=== PATIENT | female | born 1975 ===

== ENCOUNTER 2018-05-20 12:45 | Emergency (ER) | payer MEDICAID, OTHER ==
[2018-05-20 12:46] VITALS: BMI 16.9
[2018-05-20 12:52] VITALS: BP 112/83; RESP 18; TEMP 99.2; O2SAT 98
--- NOTE | 2018-05-20 13:25 | ED PDOC ---
HPI: General Adult Time Seen by Provider: 05/20/18 12:50 Chief Complaint (Nursing): Med Refill Chief Complaint (Provider): Med Refill, Anxiety History Per: Patient History/Exam Limitations: no limitations Current Symptoms Are (Timing): Still Present Additional Complaint(s): 42-year-old female, with a PMHx of Anxiety, presents to ED for Ativan refill. Patient reports she has a history of anxiety and that she ran out of the medication last night. Patient states she was in the area and decided to get the refill here. (-) HI, (-) SI, (-) auditory or visual hallucinations. Patient reports anxiety is mild right now. Patient has no physical complaints at this time. LMP: April 14 Psych: Kathe Sam PMD: No Provider Past Medical History Reviewed: Historical Data, Nursing Documentation, Vital Signs Vital Signs: Last Vital Signs Temp 99.2 F 05/20/18 12:49 Pulse 90 05/20/18 14:23 Resp 18 05/20/18 12:49 BP 112/83 05/20/18 12:49 Pulse Ox 98 05/20/18 20:19 - Medical History PMH: Anxiety, Asthma, Bipolar Disorder, Depression, Migraine, Post Traumatic Stress Disorder, Schizophrenia - Surgical History Surgical History: No Surg Hx - Family History Family History: States: Unknown Family Hx - Social History Current smoker - smoking cessation education provided: No Alcohol: None Drugs: Denies - Immunization History Hx Tetanus Toxoid Vaccination: Yes - Home Medications Home Medications: Ambulatory Orders Medication Instructions Recorded Benztropine [Benztropine Mesylate] 1 mg PO BID 10/11/17 Buspar 10/11/17 Divalproex Sodium [Divalproex 500 mg PO DAILY 10/11/17 Sodium ER] Benztropine [Cogentin] 1 mg PO HS #30 tab 10/19/17 Divalproex [Depakote ER] 500 mg PO HS #30 ter 10/19/17 busPIRone [Buspar] 10 mg PO BID #60 tab 10/19/17 fluPHENAZine [Prolixin] 10 mg PO HS #30 tab 10/19/17 traZODone [Desyrel] 50 mg PO HS PRN #30 tab 10/19/17 Benztropine [Cogentin] 1 mg PO BID #60 tab 12/09/17 Ciprofloxacin [Cipro] 500 mg PO BID #10 tab 12/09/17 Divalproex [Depakote ER] 250 mg PO BID #60 ter 12/09/17 busPIRone [Buspar] 10 mg PO BID #60 tab 12/09/17 fluPHENAZine [Prolixin] 10 mg PO BID #60 tab 12/09/17 - Allergies Allergies/Adverse Reactions: Allergies Allergy/AdvReac Type Severity Reaction Status Date / Time almond Allergy RASH Verified 05/20/18 12:48 nut - unspecified [nut] Allergy SWELLING Verified 05/20/18 12:48 peanut Allergy RASH Verified 05/20/18 12:48 Penicillins Allergy SWELLING Verified 05/20/18 12:48 shellfish derived Allergy RASH Verified 05/20/18 12:48 Review of Systems ROS Statement: Except As Marked, All Systems Reviewed And Found Negative Psych: Positive for: Anxiety (anxiety is currently mild as per pt). Negative for: Suicidal ideation (HI), Other (auditory or visual hallucinations) Physical Exam - Reviewed Nursing Documentation Reviewed: Yes Vital Signs Reviewed: Yes - Physical Exam Appears: Positive for: Well, Non-toxic, No Acute Distress (Resting comfortably) Head Exam: Positive for: ATRAUMATIC, NORMOCEPHALIC Skin: Positive for: Normal Color, Warm, Dry Eye Exam: Positive for: EOMI, PERRL ENT: Positive for: Pharynx Is (clear, uvula midline), Other (Mucus membranes moist. Airway patent, (-) stridor.) Neck: Positive for: Painless ROM, Supple Cardiovascular/Chest: Positive for: Regular Rate, Rhythm Respiratory: Positive for: Normal Breath Sounds. Negative for: Respiratory Distress Gastrointestinal/Abdominal: Positive for: Soft. Negative for: Tenderness, Distended, Guarding Extremity: Positive for: Normal ROM. Negative for: Deformity Neurologic/Psych: Positive for: Alert, Oriented (x 3), Mood/Affect (flat), Gait (steady in ED), Other (Patient is talking to herself in exam room.) - Laboratory Results Urine POC: Negative - ECG O2 Sat by Pulse Oximetry: 98 (RA) Pulse Ox Interpretation: Normal Medical Decision Making Medical Decision Makin-year-old female presents to ED for med refill, anxiety Plan: - Crisis evaluation - ED Test - Psych eval Urine Preg Test: negative 1415 Repeat HR: 90 Per crisis evaluation, patient to be discharged with the diagnosis of anxiety per Dr Luna. No refill for Ativan at this time. Patient has an appt with her psychiatrist, Dr Sam, tomorrow. On re-evaluation, patient reports no additional symptoms. On exam, patient remains AAOx3, in no acute distress. Neck is supple, lungs CTA, cardiac RRR, abdomen is soft and non-tender, neuro exam shows no focal findings. VSS, stable for discharge. Diagnostic results d/w the patient in great detail. Dx of anxiety d/w the patient. Based on history, exam and diagnostic results plan will be for outpatient follow up tomorrow as planned. Return to the emergency room at any time for any new or worsening symptoms. Patient states she fully agrees with and understands discharge instructions. States that she agrees with the plan and disposition. Verbalized and repeated discharge instructions and plan. I have given the patient opportunity to ask any additional questions. Scribe Attestation: Documented by Ahmet Oconnor, acting as a scribe for Teresita Nolan PA-C. Provider Scribe Attestation: All medical record entries made by the Scribe were at my direction and personally dictated by me. I have reviewed the chart and agree that the record accurately reflects my personal performance of the history, physical exam, medical decision making, and the department course for this patient. I have also personally directed, reviewed, and agree with the discharge instructions and disposition. Disposition - Clinical Impression Clinical Impression: Anxiety - Patient ED Disposition Is Patient to be Admitted: No Counseled Patient/Family Regarding: Diagnosis, Need For Followup - Disposition Referrals: [facility] [Outside] Disposition: Routine/Home Disposition Time: 14:16 Condition: STABLE Additional Instructions: FOLLOW UP WITH DR SAM TOMORROW SCHEDULED. RETURN TO ED WITH ANY NEW OR WORSENING SYMPTOMS. Instructions: Anxiety, Adult (DC) Forms: [facility] (Z[place]an) Print Language: SOUTH AFRICAN - POA Present On Arrival: None
[2018-05-20 14:24] VITALS: PULSE 90
== END 2018-05-20 14:44 | disposition home or self-care (01) ==
LOC: H.ER 12:45
DX: Z76.0 Encounter for issue of repeat prescription (principal); F41.9 Anxiety disorder, unspecified; F20.9 Schizophrenia, unspecified; F31.9 Bipolar disorder, unspecified; F43.10 Post-traumatic stress disorder, unspecified; J45.909 Unspecified asthma, uncomplicated; Z88.0 Allergy status to penicillin

== ENCOUNTER 2018-05-27 10:31 | Emergency (ER) | payer OTHER ==
[2018-05-27 10:47] VITALS: TEMP 98; O2SAT 99; BMI 17.2
--- NOTE | 2018-05-27 11:26 | ED PDOC ---
HPI: SOB/CHF/COPD Chief Complaint (Provider): breathing problems because i am anxious History Per: Patient Onset/Duration Of Symptoms: Intermittent Episodes Current Symptoms Are (Timing): Better Initiating Event: Other (anxiety) Associated Symptoms: Anxiety. denies: Fever, Chills, Chest Pain, Productive Cough, Leg/Calf Pain, Ankle/Leg Swelling, Light-headedness Similar Symptoms Previously: yes <Beth Sullivan - Last Filed: 05/27/18 17:03> <Dawson Burger - Last Filed: 05/31/18 15:02> Time Seen by Provider: 05/27/18 10:43 Chief Complaint (Nursing): Anxiety Additional Complaint(s): 42 yo F, with PMH depression and anxiety, presented to ED due to "breathing problems because of anxiety." Pt is not able to state what triggers her anxiety , and is unable to further describe her symptoms on her own, but when prompted admits to feeling like she breathes too slow rather than too fast. Denies cough, shortness of breath on exertion, chest pain, dysuria, n/v/d/c, abdominal pain, leg/calf pain, does not offer any additional complaints. Currently denies any suicidal or homicidal ideation. Does not have regular PMD. PMH: anxiety, depression Meds: klonopin 0.25 mg, takes daily Surg: none Social: lives with mother in [place]. some days smoker x 2 yrs, social etoh (quantifies as 1 glass wine every few weeks), denies any drug use Fam hx: mother has htn; siblings have anxiety Allergiies: almont, peanut, penicillin (Beth Sullivan) Past Medical History Reviewed: Nursing Documentation, Vital Signs - Medical History PMH: Anxiety, Asthma, Bipolar Disorder, Depression, Migraine, Post Traumatic Stress Disorder, Schizophrenia Denies: Diabetes, Hepatitis, HIV, HTN, Chronic Kidney Disease, Seizures, Sexually Transmitted Disease - Surgical History Surgical History: No Surg Hx - Family History Family History: States: Hypertension Other Family History: anxiety - Living Arrangements Living Arrangements: With Family - Social History Alcohol: Social Drugs: Denies - Immunization History Hx Tetanus Toxoid Vaccination: Yes Hx Influenza Vaccination: No Hx Pneumococcal Vaccination: No <Beth Sullivan - Last Filed: 05/27/18 17:03> <Dawson Burger - Last Filed: 05/31/18 15:02> Vital Signs: Last Vital Signs Temp 98 F 05/27/18 10:46 Pulse 82 05/27/18 16:10 Resp 16 05/27/18 16:10 BP 124/64 05/27/18 16:10 Pulse Ox 99 05/27/18 17:03 - Home Medications Home Medications: Ambulatory Orders Medication Instructions Recorded clonazePAM [clonAZEPAM] 0.25 mg PO DAILY PRN 05/28/18 - Allergies Allergies/Adverse Reactions: Allergies Allergy/AdvReac Type Severity Reaction Status Date / Time almond Allergy RASH Verified 05/20/18 12:48 nut - unspecified [nut] Allergy SWELLING Verified 05/20/18 12:48 peanut Allergy RASH Verified 05/20/18 12:48 Penicillins Allergy SWELLING Verified 05/27/18 10:51 shellfish derived Allergy RASH Verified 05/20/18 12:48 Curb-65 Severity Score - CURB-65 Severity Score Confusion: No Respiratory Rate greater than/equal to 30: No Systolic BP <90 or Diastolic BP less than/equal 60mmHg: No Age >64: No Curb-65 Score: 0 Percentage 30-day mortality: 0.6% <Beth Sullivan - Last Filed: 05/27/18 17:03> Wells Criteria for PE - Wells Criteria for Pulmonary Embolism Clinical Signs and Symptoms of DVT: No P.E is #1 Diagnosis, or Equally Likely: No Heart Rate >100: No Immobilization at least 3 days;Surgery previous 4 weeks: No Previous, objectively diagnosed PE or DVT: No Hemoptysis: No Malignancy w/treatment within 6 months, or palliative: No Total Score: 0 <Beth Sullivan - Last Filed: 05/27/18 17:03> Review of Systems ROS Statement: Except As Marked, All Systems Reviewed And Found Negative ( positive as per HPI) Constitutional: Negative for: Fever, Sweats, Weakness Eyes: Negative for: Vision Change Cardiovascular: Negative for: Chest Pain Respiratory: Positive for: Other (breathing slow, "breathing problems"). Negative for: Cough, Hemoptysis, SOB with Exertion Gastrointestinal: Negative for: Nausea, Vomiting, Abdominal Pain, Diarrhea, Hematemesis Genitourinary Female: Negative for: Dysuria Psych: Positive for: Anxiety, Depression. Negative for: Suicidal ideation <Beth Sullivan Last Filed: 05/27/18 17:03> Physical Exam - Reviewed Nursing Documentation Reviewed: Yes Vital Signs Reviewed: Yes - Physical Exam Appears: Positive for: Non-toxic (somewhat nervous) Head Exam: Positive for: ATRAUMATIC Skin: Positive for: Normal Color, Warm, Dry Eye Exam: Positive for: Normal appearance, EOMI, PERRL ENT: Positive for: Normal ENT Inspection, Pharynx Is (clear). Negative for: Pharyngeal Erythema, Tonsillar Exudate Neck: Positive for: Normal, Painless ROM, Supple, Trachea Midline Cardiovascular/Chest: Positive for: Regular Rate, Rhythm, Chest Non Tender. Negative for: Edema Respiratory: Positive for: Normal Breath Sounds. Negative for: Decreased Breath Sounds, Accessory Muscle Use, Crackles, Rales, Stridor, Wheezing, Respiratory Distress Gastrointestinal/Abdominal: Positive for: Bowel Sounds, Soft. Negative for: Tenderness Extremity: Positive for: Capillary Refill (less than 2 sec). Negative for: Tenderness, Pedal Edema, Deformity Neurologic/Psych: Positive for: Alert, Oriented <Beth Sullivan - Last Filed: 05/27/18 17:03> - Laboratory Results Result Diagrams: 05/27/18 11:47 05/27/18 11:47 - ECG O2 Sat by Pulse Oximetry: 99 <Beth Sullivan - Last Filed: 05/27/18 17:03> - Laboratory Results Result Diagrams: 05/27/18 11:47 05/27/18 11:47 <Dawson Burger - Last Filed: 05/31/18 15:02> Medical Decision Making <Beth Sullivan - Last Filed: 05/27/18 17:03> <Dawson Burger - Last Filed: 05/31/18 15:02> Medical Decision Making: - EKG - BMP - CBC - Acetaminophen level - Alcohol serum level - Salicylate serum level - Urine drug screen - Pending Crisis eval 1700 Pt left before being seen by machine shop worker; was noted to not be in room or found in ED at 1657. Last seen AAO x3, stable, denied suicidal/homicidal ideation or intent to hurt self and/or others. (Beth Sullivan) Time: 1300 -- Care of patient supervised by policy writer sales. Time: 1436 -- 42 y/o female with an extensive psychiatric history presents to the ED complaining of difficulty breathing. On re-evaluation, patient states she feels slightly better and is cleared for psychiatric evaluation. On exam, lungs are clear to auscultation. Patient is currently pending crisis evaluation. however left before was evaluated. pt had been stable and denied SI or HI. _ Scribe Attestation: Documented by Atiya Kathleen acting as a scribe for Dr. Dawson Burger MD. Provider Scribe Attestation: All medical record entries made by the Scribe were at my direction and personally dictated by me. I have reviewed the chart and agree that the record accurately reflects my personal performance of the history, physical exam, medical decision making, and the department course for this patient. I have also personally directed, reviewed, and agree with the discharge instructions and disposition. (Dawson Burger) Disposition - Disposition Disposition Time: 17:03 <Beth Sullivan - Last Filed: 05/27/18 17:03> - Patient ED Disposition Is Patient to be Admitted: No - Disposition Disposition: Left W/O Treatment <Dawson Burger - Last Filed: 05/31/18 15:02> - Clinical Impression Clinical Impression: Anxiety disorder - Disposition Condition: STABLE Forms: [facility] ([place] Islander)
[2018-05-27 11:49] LABS: SQUAMOUS EPITHIAL 8 /hpf (0-5); URINE BACTERIA MANY (<OCC); URINE BILIRUBIN NEGATIVE (NEGATIVE); URINE BLOOD NEGATIVE (NEGATIVE); URINE CLARITY CLOUDY (Clear); URINE COLOR YELLOW (YELLOW); URINE GLUCOSE (UA) NEG (Normal); URINE LEUKOCYTE ESTERASE TRACE Leu/uL (Negative); URINE PROTEIN 30 mg/dL (NEGATIVE)
[2018-05-27 12:19] LABS: BASO % 0.3 % (0.0-2.0); EOS % 0.6 % (0.0-4.0); HEMOGLOBIN 14.3 g/dL (12.0-16.0); LYMPH # 1.5 K/uL (1.0-4.3); LYMPH % 20.1 % (20.0-40.0); MEAN CELL VOLUME 94.7 fl (81.0-99.0); MEAN CORPUSCULAR HEMOGLOBIN 32.3 pg (27.0-31.0); MEAN CORPUSCULAR HGB CONC 34.1 g/dL (33.0-37.0); MEAN PLATELET VOLUME 9.7 fl (7.2-11.7); MONO # 0.7 K/uL (0.0-0.8); MONO % 9.3 % (0.0-10.0); NEUT # 5.2 K/uL (1.8-7.0); NEUT % 69.7 % (50.0-75.0); RBC 4.41 Mil/uL (3.80-5.20); RED CELL DISTRIBUTION WIDTH 12.5 % (11.5-14.5); WHITE BLOOD COUNT 7.5 K/uL (4.8-10.8)
[2018-05-27 12:47] LABS: BARBITURATES, UR NEGATIVE (NEGATIVE); BENZODIAZEPINES, UR NEGATIVE (NEGATIVE); OPIATES, UR NEGATIVE (NEGATIVE); PHENCYCLIDINE, UR NEGATIVE (NEGATIVE)
[2018-05-27 12:50] LABS: ACETAMINOPHEN < 10.0 ug/ml (10.0-30.0); BLOOD UREA NITROGEN 9 mg/dl (7-17); CALCIUM 9.6 mg/dL (8.4-10.2); GFR AFRICAN-AMERICAN > 60; GFR NON-AFRICAN AMERICAN > 60; SALICYLATE < 1.0 mg/dL 1
--- NOTE | 2018-05-27 15:01 | CARD ---
APPROVED REPORT Date of service: 05/27/2018 EKG Measurement Heart [id number] <Conclusion> Sinus rhythm with short ME T wave abnormality, consider anterior ischemia Abnormal ECG
[2018-05-27 17:06] VITALS: BP 124/64; PULSE 82; RESP 16
== END 2018-05-27 17:46 | disposition left against medical advice (07) ==
LOC: H.ER 10:31
DX: F41.9 Anxiety disorder, unspecified (principal); F20.9 Schizophrenia, unspecified; F31.9 Bipolar disorder, unspecified; F43.10 Post-traumatic stress disorder, unspecified; J44.9 Chronic obstructive pulmonary disease, unspecified; Z88.0 Allergy status to penicillin

== ENCOUNTER 2018-06-25 10:30 | Emergency (ER) | payer MEDICAID, OTHER ==
[2018-06-25 10:30] VITALS: BMI 17.2
[2018-06-25 10:41] VITALS: RESP 18
--- NOTE | 2018-06-25 10:58 | ED PDOC ---
HPI: Psych/Substance Abuse Time Seen by Provider: 06/25/18 10:50 Chief Complaint (Provider): anxiety, SI History Per: Patient History/Exam Limitations: no limitations Onset/Duration Of Symptoms: Hrs (today) Associated Symptoms: Anxiety, Suicidal Thoughts, Suicidal Plan Additional Complaint(s): Solange Reyna is a 42 year old female, with a past medical history of psychoaffective disorder, who presents to the emergency department complaining of anxiety as well as suicidal ideation. Patient reports plan is to take bottle of Tylenol. She denies any homicidal ideation or other medical complaints. PMD: None provided. Past Medical History Reviewed: Historical Data, Nursing Documentation, Vital Signs Vital Signs: Last Vital Signs Temp 98.1 F 06/25/18 10:40 Pulse 82 06/25/18 10:40 Resp 18 06/25/18 10:40 BP 115/81 06/25/18 10:40 Pulse Ox 97 06/25/18 10:40 - Medical History PMH: Anxiety, Asthma, Bipolar Disorder, Depression, Migraine, Post Traumatic Stress Disorder, Schizophrenia Denies: Diabetes, Hepatitis, HIV, HTN, Chronic Kidney Disease, Seizures, Sexually Transmitted Disease - Surgical History Surgical History: No Surg Hx - Family History Family History: States: Unknown Family Hx, Hypertension - Immunization History Hx Tetanus Toxoid Vaccination: Yes Hx Influenza Vaccination: No Hx Pneumococcal Vaccination: No - Home Medications Home Medications: Ambulatory Orders Medication Instructions Recorded clonazePAM [clonAZEPAM] 0.25 mg PO DAILY PRN 05/28/18 Benztropine [Cogentin] 1 mg PO BID #60 tab 06/07/18 Haloperidol [Haldol] 5 mg PO BID #60 tab 06/07/18 QUEtiapine [SEROquel] 100 mg PO HS #30 tab 06/07/18 - Allergies Allergies/Adverse Reactions: Allergies Allergy/AdvReac Type Severity Reaction Status Date / Time almond Allergy RASH Verified 05/20/18 12:48 nut - unspecified [nut] Allergy SWELLING Verified 05/20/18 12:48 peanut Allergy RASH Verified 05/20/18 12:48 Penicillins Allergy SWELLING Verified 05/27/18 10:51 shellfish derived Allergy RASH Verified 05/20/18 12:48 Review of Systems ROS Statement: Except As Marked, All Systems Reviewed And Found Negative Psych: Positive for: Anxiety, Suicidal ideation (with plan) Physical Exam - Reviewed Nursing Documentation Reviewed: Yes Vital Signs Reviewed: Yes - Physical Exam Appears: Positive for: No Acute Distress Head Exam: Positive for: ATRAUMATIC, NORMAL INSPECTION, NORMOCEPHALIC Skin: Positive for: Normal Color, Warm, Dry Eye Exam: Positive for: Normal appearance, EOMI, PERRL Neck: Positive for: Painless ROM Cardiovascular/Chest: Positive for: Regular Rate, Rhythm. Negative for: Murmur Respiratory: Positive for: Normal Breath Sounds. Negative for: Respiratory Distress Gastrointestinal/Abdominal: Positive for: Normal Exam, Soft. Negative for: Tenderness Extremity: Positive for: Normal ROM (upper and lower extremities). Negative for : Deformity, Swelling Neurologic/Psych: Positive for: Alert, Oriented - ECG O2 Sat by Pulse Oximetry: 97 (RA) Pulse Ox Interpretation: Normal - Progress Re-evaluation Time: 11:54 Condition: Improved (Denies SI at present) Medical Decision Making Medical Decision Making: Time: 10:50 Initial Plan: --Alcohol serum --CMP --Drug screen, urine --Urine dipstick --Urine --CBC w/ differential --1:1 Observation --Reevaluation ----- Scribe Attestation: Documented by Edwardo Pop, acting as a scribe for Jero Jakcson MD. Provider Scribe Attestation: All medical record entries made by the Scribe were at my direction and personally dictated by me. I have reviewed the chart and agree that the record accurately reflects my personal performance of the history, physical exam, medical decision making, and the department course for this patient. I have also personally directed, reviewed, and agree with the discharge instructions and disposition. Disposition - Clinical Impression Clinical Impression: Anxiety disorder - Patient ED Disposition Is Patient to be Admitted: No Counseled Patient/Family Regarding: Diagnosis, Need For Followup - Disposition Referrals: [facility] [Outside] Disposition: Routine/Home Disposition Time: 11:55 Condition: FAIR Instructions: Anxiety, Adult (DC)
[2018-06-25 12:04] LABS: BASO % 0.4 % (0.0-2.0); EOS # 0.1 K/uL (0.0-0.7); EOS % 1.3 % (0.0-4.0); HEMOGLOBIN 11.8 g/dL (12.0-16.0); LYMPH # 1.1 K/uL (1.0-4.3); LYMPH % 14.7 % (20.0-40.0); MEAN CELL VOLUME 96.5 fl (81.0-99.0); MEAN CORPUSCULAR HEMOGLOBIN 32.5 pg (27.0-31.0); MEAN CORPUSCULAR HGB CONC 33.7 g/dL (33.0-37.0); MEAN PLATELET VOLUME 9.1 fl (7.2-11.7); MONO # 0.8 K/uL (0.0-0.8); MONO % 10.5 % (0.0-10.0); NEUT # 5.7 K/uL (1.8-7.0); NEUT % 73.1 % (50.0-75.0); RBC 3.62 Mil/uL (3.80-5.20); RED CELL DISTRIBUTION WIDTH 12.9 % (11.5-14.5); WHITE BLOOD COUNT 7.8 K/uL (4.8-10.8)
[2018-06-25 12:06] LABS: BARBITURATES, UR NEGATIVE (NEGATIVE); BENZODIAZEPINES, UR NEGATIVE (NEGATIVE); OPIATES, UR NEGATIVE (NEGATIVE); PHENCYCLIDINE, UR NEGATIVE (NEGATIVE)
[2018-06-25 12:13] LABS: ALB/GLOB RATIO 1.1 (1.0-2.1); ALT/SGPT 37 U/L (9-52); AST/SGOT 31 U/L (14-36); BLOOD UREA NITROGEN 9 mg/dl (7-17); GFR AFRICAN-AMERICAN > 60; GFR NON-AFRICAN AMERICAN > 60
[2018-06-25 12:21] VITALS: BP 130/69; PULSE 96; TEMP 97.9; O2SAT 99
== END 2018-06-25 12:24 | disposition home or self-care (01) ==
LOC: H.ER 10:30
DX: F41.9 Anxiety disorder, unspecified (principal)

== ENCOUNTER 2018-07-24 15:54 | Emergency (ER) | payer MEDICAID, OTHER ==
[2018-07-24 15:55] VITALS: BMI 17.2
[2018-07-24 16:01] VITALS: BP 115/79; PULSE 86; RESP 16; TEMP 98.1; O2SAT 96
--- NOTE | 2018-07-24 16:10 | ED PDOC ---
HPI: Psych/Substance Abuse Time Seen by Provider: 07/24/18 15:58 Chief Complaint (Nursing): Anxiety Chief Complaint (Provider): anxiety History Per: Patient Additional Complaint(s): 42-year-old female with history of anxiety presents with panic attack symptoms. Patient states she was having difficulty breathing earlier but this has subsided. Patient denies any chest pain or SOB upon arrival. She denies suicidal or homicidal ideation and she also denies auditory or visual hallucinations. PMD: none Psychiatrist: Dr. Sam Past Medical History Reviewed: Historical Data, Nursing Documentation, Vital Signs Vital Signs: Last Vital Signs Temp 98.1 F 07/24/18 15:57 Pulse 86 07/24/18 15:57 Resp 16 07/24/18 15:57 BP 115/79 07/24/18 15:57 Pulse Ox 96 07/24/18 15:57 - Medical History PMH: Anxiety, Asthma, Bipolar Disorder, Depression, Migraine, Post Traumatic Stress Disorder, Schizophrenia - Surgical History Surgical History: - Family History Family History: States: Hypertension - Living Arrangements Living Arrangements: Alone - Social History Current smoker - smoking cessation education provided: No Alcohol: None Drugs: Denies - Home Medications Home Medications: Ambulatory Orders Medication Instructions Recorded Olanzapine [Zyprexa] 5 mg PO DAILY 07/23/18 - Allergies Allergies/Adverse Reactions: Allergies Allergy/AdvReac Type Severity Reaction Status Date / Time almond Allergy RASH Verified 07/24/18 15:57 nut - unspecified [nut] Allergy SWELLING Verified 07/24/18 15:57 peanut Allergy RASH Verified 07/24/18 15:57 Penicillins Allergy SWELLING Verified 07/24/18 15:57 shellfish derived Allergy RASH Verified 07/24/18 15:57 Review of Systems ROS Statement: Except As Marked, All Systems Reviewed And Found Negative Cardiovascular: Negative for: Chest Pain Respiratory: Negative for: Cough Gastrointestinal: Negative for: Nausea, Vomiting Psych: Positive for: Anxiety. Negative for: Psychosis (denies auditory or visual hallucinations), Suicidal ideation Physical Exam - Reviewed Nursing Documentation Reviewed: Yes Vital Signs Reviewed: Yes - Physical Exam Appears: Positive for: Well, Non-toxic, No Acute Distress Skin: Positive for: Normal Color. Negative for: Rash Eye Exam: Positive for: Normal appearance Cardiovascular/Chest: Positive for: Regular Rate, Rhythm Respiratory: Positive for: Normal Breath Sounds. Negative for: Wheezing, Respiratory Distress Extremity: Positive for: Normal ROM Neurologic/Psych: Positive for: Alert, Oriented - ECG O2 Sat by Pulse Oximetry: 96 Pulse Ox Interpretation: Normal Medical Decision Making Medical Decision Makin42 y/o with anxiety Plan: PO xanax Crisis consult Patient states she feels better after meds given. As per crisis counselor and psychiatric provider director of instruction, Victorino Ruff NP, patient does not meet criteria for admission and is stable for discharge. Disposition - Clinical Impression Clinical Impression: Anxiety - Patient ED Disposition Is Patient to be Admitted: No Counseled Patient/Family Regarding: Diagnosis, Need For Followup - Disposition Referrals: [facility] [Outside] Disposition: Routine/Home Disposition Time: 17:01 Condition: STABLE Additional Instructions: Follow-up as directed. Instructions: Anxiety, Adult (DC) Forms: [email or web address] (Armenian)
== END 2018-07-24 17:10 | disposition home or self-care (01) ==
LOC: H.ER 15:54
DX: Z88.0 Allergy status to penicillin (principal); J45.909 Unspecified asthma, uncomplicated; Z86.59 Personal history of other mental and behavioral disorders; F41.0 Panic disorder [episodic paroxysmal anxiety]; F43.10 Post-traumatic stress disorder, unspecified

== ENCOUNTER 2018-08-08 15:41 | Emergency (ER) | payer OTHER ==
[2018-08-08 15:42] VITALS: BMI 17.2
[2018-08-08 15:47] VITALS: BP 119/71; PULSE 85; RESP 18; TEMP 98.1; O2SAT 100
--- NOTE | 2018-08-08 16:42 | ED PDOC ---
HPI: Psych/Substance Abuse Time Seen by Provider: 08/08/18 15:53 Chief Complaint (Nursing): Anxiety Chief Complaint (Provider): Anxiety History Per: Patient History/Exam Limitations: no limitations Onset/Duration Of Symptoms: Hrs (today) Current Symptoms Are (Timing): Better Additional Complaint(s): Solange Reyna is a 42 year old female, with a past medical history of anxiety, who presents to the emergency department complaining of anxiety onset today. Patient reports feeling better now and is currently requesting Xanax. She denies any other medical complaints. PMD: No CPH provider Past Medical History Reviewed: Historical Data, Nursing Documentation, Vital Signs Vital Signs: Last Vital Signs Temp 98.1 F 08/08/18 15:46 Pulse 85 08/08/18 15:46 Resp 18 08/08/18 15:46 BP 119/71 08/08/18 15:46 Pulse Ox 100 08/08/18 15:46 - Medical History PMH: Anxiety, Asthma, Bipolar Disorder, Depression, Migraine, Post Traumatic Stress Disorder, Schizophrenia Denies: Diabetes, Hepatitis, HIV, HTN, Chronic Kidney Disease, Seizures, Sexually Transmitted Disease - Surgical History Surgical History: No Surg Hx - Family History Family History: States: Unknown Family Hx, Hypertension - Immunization History Hx Tetanus Toxoid Vaccination: Yes Hx Influenza Vaccination: No Hx Pneumococcal Vaccination: No - Home Medications Home Medications: Ambulatory Orders Medication Instructions Recorded Olanzapine [Zyprexa] 5 mg PO DAILY 07/23/18 - Allergies Allergies/Adverse Reactions: Allergies Allergy/AdvReac Type Severity Reaction Status Date / Time almond Allergy RASH Verified 07/24/18 15:57 nut - unspecified [nut] Allergy SWELLING Verified 07/24/18 15:57 peanut Allergy RASH Verified 07/24/18 15:57 Penicillins Allergy SWELLING Verified 07/24/18 15:57 shellfish derived Allergy RASH Verified 07/24/18 15:57 Review of Systems ROS Statement: Except As Marked, All Systems Reviewed And Found Negative Psych: Positive for: Anxiety Physical Exam - Reviewed Nursing Documentation Reviewed: Yes Vital Signs Reviewed: Yes - Physical Exam Appears: Positive for: No Acute Distress Head Exam: Positive for: ATRAUMATIC, NORMOCEPHALIC Skin: Positive for: Normal Color, Warm, Dry Eye Exam: Positive for: Normal appearance Neck: Positive for: Painless ROM Cardiovascular/Chest: Positive for: Regular Rate, Rhythm. Negative for: Murmur Respiratory: Positive for: Normal Breath Sounds. Negative for: Respiratory Distress Extremity: Positive for: Normal ROM (upper and lower extremities). Negative for: Deformity, Swelling Neurologic/Psych: Positive for: Alert, Oriented, Gait (steady) - ECG O2 Sat by Pulse Oximetry: 100 (RA) Pulse Ox Interpretation: Normal Medical Decision Making Medical Decision Making: Time: 15:53 Initial Impression: Anxiety Initial Plan: 16:38 Patient is medically stable, and requires no further treatment in the ED at this time. Patient will be discharged home. Counseling was provided and all questions were answered regarding diagnosis and need for follow up with PMD. There is agreement to discharge plan. Return if symptoms persist or worsen. Scribe Attestation: Documented by Edwardo Pop, acting as a scribe for Tesha Ayala PA-C Provider Scribe Attestation: All medical record entries made by the Scribe were at my direction and personally dictated by me. I have reviewed the chart and agree that the record accurately reflects my personal performance of the history, physical exam, medical decision making, and the department course for this patient. I have also personally directed, reviewed, and agree with the discharge instructions and disposition. Disposition - Clinical Impression Clinical Impression: Anxiety disorder - Disposition Referrals: Non [facility] Provider, [Primary Care Provider] - Disposition: Routine/Home Disposition Time: 16:40 Condition: STABLE Instructions: Anxiety, Adult (DC) Forms: [employer] (Japanese)
== END 2018-08-08 16:42 | disposition home or self-care (01) ==
LOC: SUPCPDRO 15:41 → H.ER 15:41
DX: F41.9 Anxiety disorder, unspecified (principal)

== ENCOUNTER 2018-08-16 02:49 | Emergency (ER) | payer OTHER, MEDICAID ==
--- NOTE | 2018-08-16 03:16 | ED PDOC ---
HPI: General Adult Time Seen by Provider: 08/16/18 03:13 Chief Complaint (Nursing): Anxiety Chief Complaint (Provider): "I had an anxiety attack" History Per: Patient History/Exam Limitations: no limitations Onset/Duration Of Symptoms: Mins, Other (Resolved ) Additional Complaint(s): 42 yo female with history of anxiety and asthma presents for evaluation of anxiety. Pt states prior to arrival she had an anxiety attack and requesting xanax for her anxiety. Pt denies current symptoms. Pt has been seen in ER for the same by quality analyst/technical writer. Past Medical History Reviewed: Historical Data, Nursing Documentation, Vital Signs - Medical History PMH: Anxiety, Asthma, Bipolar Disorder, Depression, Migraine, Post Traumatic St ress Disorder, Schizophrenia Denies: Diabetes (Patient denied), Hepatitis (Patient denied), HIV (Patient denied), HTN (Patient denied), Chronic Kidney Disease, Seizures (Patient denied), Sexually Transmitted Disease (Patient denied) - Surgical History Surgical History: - Family History Family History: States: Hypertension - Immunization History Hx Tetanus Toxoid Vaccination: Yes Hx Influenza Vaccination: No Hx Pneumococcal Vaccination: No - Home Medications Home Medications: Ambulatory Orders Medication Instructions Recorded Olanzapine [Zyprexa] 7.5 mg PO DAILY 07/23/18 PARoxetine [Paxil] 10 mg PO DAILY 18 - Allergies Allergies/Adverse Reactions: Allergies Allergy/AdvReac Type Severity Reaction Status Date / Time almond Allergy RASH Verified 08/16/18 03:18 nut - unspecified [nut] Allergy SWELLING Verified 08/16/18 03:18 peanut Allergy RASH Verified 08/16/18 03:18 Penicillins Allergy SWELLING Verified 08/16/18 03:18 shellfish derived Allergy RASH Verified 08/16/18 03:18 Review of Systems ROS Statement: Except As Marked, All Systems Reviewed And Found Negative Constitutional: Negative for: Fever, Chills Cardiovascular: Negative for: Chest Pain, Palpitations, Light Headedness Gastrointestinal: Negative for: Nausea, Vomiting, Abdominal Pain Musculoskeletal: Negative for: Neck Pain, Shoulder Pain Neurological: Negative for: Weakness, Numbness, Seizures, Altered Mental Status Psych: Positive for: Anxiety (Resolved ). Negative for: Suicidal ideation, Withdrawal Physical Exam - Reviewed Nursing Documentation Reviewed: Yes Vital Signs Reviewed: Yes - Physical Exam Appears: Positive for: Well, Non-toxic, No Acute Distress Head Exam: Positive for: ATRAUMATIC, NORMAL INSPECTION, NORMOCEPHALIC Skin: Positive for: Normal Color, Warm, DRY Eye Exam: Positive for: Normal appearance ENT: Positive for: Normal ENT Inspection Neck: Positive for: Normal, Painless ROM Cardiovascular/Chest: Positive for: Regular Rate, Rhythm Respiratory: Positive for: Normal Breath Sounds. Negative for: Accessory Muscle Use, Respiratory Distress Back: Positive for: Normal Inspection Extremity: Positive for: Normal ROM Neurologic/Psych: Positive for: Alert, Oriented Medical Decision Making Medical Decision Making: Discussed f/u out-patient with PMD or psychiatrist Disposition - Clinical Impression Clinical Impression: Anxiety - Patient ED Disposition Is Patient to be Admitted: No Counseled Patient/Family Regarding: Diagnosis, Need For Followup - Disposition Referrals: [facility] [Outside] Disposition: Routine/Home Disposition Time: 03:17 Condition: GOOD Instructions: Anxiety, Adult (DC) Forms: [employer] (Frisian)
[2018-08-16 03:19] VITALS: BMI 19.5
[2018-08-16 03:23] VITALS: O2SAT 98
[2018-08-16 04:24] VITALS: BP 114/74; PULSE 72; RESP 15; TEMP 98.2
== END 2018-08-16 03:30 | disposition home or self-care (01) ==
LOC: H.ER 02:49
DX: F41.9 Anxiety disorder, unspecified (principal); F20.9 Schizophrenia, unspecified; F31.9 Bipolar disorder, unspecified; F43.10 Post-traumatic stress disorder, unspecified

== ENCOUNTER 2018-08-23 12:52 | Emergency (ER) | payer MEDICAID, OTHER ==
[2018-08-23 12:52] VITALS: BMI 19.5
[2018-08-23 13:03] VITALS: BP 112/76; PULSE 84; RESP 16; TEMP 98; O2SAT 99
[2018-08-23 15:44] LABS: BASO % 0.4 % (0.0-2.0); EOS # 0.1 K/uL (0.0-0.7); EOS % 1.2 % (0.0-4.0); HEMOGLOBIN 12.9 g/dL (12.0-16.0); LYMPH # 1.7 K/uL (1.0-4.3); LYMPH % 20.3 % (20.0-40.0); MEAN CELL VOLUME 94.9 fl (81.0-99.0); MEAN CORPUSCULAR HEMOGLOBIN 31.6 pg (27.0-31.0); MEAN CORPUSCULAR HGB CONC 33.3 g/dL (33.0-37.0); MEAN PLATELET VOLUME 9.5 fl (7.2-11.7); MONO # 0.9 K/uL (0.0-0.8); NEUT # 5.5 K/uL (1.8-7.0); NEUT % 67.1 % (50.0-75.0); NRBC % 0.1 % (0.0-0.0); RBC 4.07 Mil/uL (3.80-5.20); RED CELL DISTRIBUTION WIDTH 12.7 % (11.5-14.5); WHITE BLOOD COUNT 8.2 K/uL (4.8-10.8)
[2018-08-23 15:58] LABS: ALB/GLOB RATIO 0.9 (1.0-2.1); ALBUMIN 4.2 g/dL (3.5-5.0); ALT/SGPT 94 U/L (9-52); AST/SGOT 63 U/L (14-36); BLOOD UREA NITROGEN 8 mg/dl (7-17); CALCIUM 9.3 mg/dL (8.4-10.2); GFR NON-AFRICAN AMERICAN > 60
[2018-08-23 16:00] LABS: SQUAMOUS EPITHIAL 4 /hpf (0-5); URINE BACTERIA OCC (<OCC); URINE BILIRUBIN NEGATIVE (NEGATIVE); URINE BLOOD NEGATIVE (NEGATIVE); URINE CLARITY SLIGHTY-CLOUDY (Clear); URINE COLOR YELLOW (YELLOW); URINE GLUCOSE (UA) NEG (Normal); URINE LEUKOCYTE ESTERASE NEG Leu/uL (Negative); URINE PROTEIN NEGATIVE (NEGATIVE); URINE UROBILINOGEN 0.2-1.0 mg/dL (0.2-1.0)
--- NOTE | 2018-08-23 16:03 | ED PDOC ---
HPI: General Adult Time Seen by Provider: 08/23/18 13:46 Chief Complaint (Nursing): Abdominal Pain Chief Complaint (Provider): Nausea History Per: Patient History/Exam Limitations: no limitations Onset/Duration Of Symptoms: Days Have you had recent travel within the past 21 days to any of the following coun tries: [place], [place], [place] or [place]?: No Current Symptoms Are (Timing): Still Present Additional Complaint(s): 42 yo female with history of gastritis and bipolar disorder presents for evaluation of nausea. Pt states she vomited x 1 after eating oatmeal. Pt denies abdominal pain. Normal BM. No fever/chills. Past Medical History Reviewed: Historical Data, Nursing Documentation, Vital Signs Vital Signs: Last Vital Signs Temp 98 F 08/23/18 13:00 Pulse 84 08/23/18 13:00 Resp 16 08/23/18 13:00 BP 112/76 08/23/18 13:00 Pulse Ox 99 08/23/18 13:00 - Medical History PMH: Anxiety, Asthma, Bipolar Disorder, Depression, Migraine, Post Traumatic Stress Disorder, Schizophrenia Denies: Diabetes (Patient denied), Hepatitis (Patient denied), HIV (Patient denied), HTN (Patient denied), Chronic Kidney Disease, Seizures (Patient denied), Sexually Transmitted Disease (Patient denied) - Surgical History Surgical History: - Family History Family History: States: No Known Family Hx, Hypertension - Living Arrangements Living Arrangements: With Family - Immunization History Hx Tetanus Toxoid Vaccination: Yes Hx Influenza Vaccination: No Hx Pneumococcal Vaccination: No - Home Medications Home Medications: Ambulatory Orders Medication Instructions Recorded Olanzapine [Zyprexa] 7.5 mg PO DAILY 07/23/18 PARoxetine [Paxil] 10 mg PO DAILY 08/11/18 Ondansetron [Zofran Odt] 4 mg PO Q4H PRN #10 odt 08/23/18 - Allergies Allergies/Adverse Reactions: Allergies Allergy/AdvReac Type Severity Reaction Status Date / Time almond Allergy RASH Verified 08/23/18 13:00 nut - unspecified [nut] Allergy SWELLING Verified 08/23/18 13:00 peanut Allergy RASH Verified 08/23/18 13:00 Penicillins Allergy SWELLING Verified 08/23/18 13:00 shellfish derived Allergy RASH Verified 08/23/18 13:00 Review of Systems ROS Statement: Except As Marked, All Systems Reviewed And Found Negative Constitutional: Negative for: Fever, Chills Gastrointestinal: Positive for: Nausea, Vomiting. Negative for: Abdominal Pain, Diarrhea, Constipation, Melena Physical Exam - Reviewed Nursing Documentation Reviewed: Yes Vital Signs Reviewed: Yes - Physical Exam Appears: Positive for: Well, Non-toxic, No Acute Distress Head Exam: Positive for: ATRAUMATIC, NORMAL INSPECTION, NORMOCEPHALIC Skin: Positive for: Normal Color, Warm, DRY Eye Exam: Positive for: Normal appearance ENT: Positive for: Normal ENT Inspection Neck: Positive for: Normal, Painless ROM Cardiovascular/Chest: Positive for: Regular Rate, Rhythm Respiratory: Positive for: CNT, Normal Breath Sounds Gastrointestinal/Abdominal: Positive for: Normal Exam, Soft. Negative for: Tenderness Back: Positive for: Normal Inspection Extremity: Positive for: Normal ROM Neurologic/Psych: Positive for: Alert, Oriented - Laboratory Results Result Diagrams: 08/23/18 14:15 08/23/18 14:15 - ECG O2 Sat by Pulse Oximetry: 99 Medical Decision Making Medical Decision Making: Zofran PO Pt reports feeling much better on re-evaluation. PO challenge successful. Disposition - Clinical Impression Clinical Impression: Nausea - Patient ED Disposition Is Patient to be Admitted: No Counseled Patient/Family Regarding: Diagnosis, Need For Followup, Rx Given - Disposition Referrals: [facility] [Outside] Disposition: Routine/Home Disposition Time: 16:04 Condition: GOOD Prescriptions: Ondansetron [Zofran Odt] 4 mg PO Q4H PRN #10 odt PRN Reason: Nausea Instructions: Nausea and Vomiting, Adult
== END 2018-08-23 16:19 | disposition home or self-care (01) ==
LOC: H.ER 12:52
DX: R10.9 Unspecified abdominal pain (principal); R11.0 Nausea; Z88.0 Allergy status to penicillin

== ENCOUNTER 2018-09-21 11:30 | Emergency (ER) | payer OTHER ==
[2018-09-21 11:30] VITALS: BMI 19.5
--- NOTE | 2018-09-21 12:55 | ED PDOC ---
HPI: Psych/Substance Abuse Time Seen by Provider: 09/21/18 12:18 Chief Complaint (Nursing): Chest Pain Chief Complaint (Provider): Anxiety, Palpitations, SOB History Per: Patient History/Exam Limitations: no limitations Onset/Duration Of Symptoms: Hrs Current Symptoms Are (Timing): Gone Now Modifying Factor(s): None Severity: None Associated Symptoms: Anxiety Additional Complaint(s): 42 yo F with PMHx of anxiety presents to the ED with complaint of palpitations and SOB. Pt states she frequently feels like this which is consistent with anxiety/panic attacks. Pt denies diaphoresis, cough, dizziness, weakness, or chest pain. Pt states that since being in the ED, the symptoms have resolved. She thinks the symptoms may be triggered because she has missed several days of Zyprexa. Pt states she has the Zyprexa at home and does not need a refill. Past Medical History - Medical History PMH: Anxiety, Asthma, Bipolar Disorder, Depression, Migraine, Post Traumatic Stress Disorder, Schizophrenia Denies: Diabetes (Patient denied), Hepatitis (Patient denied), HIV (Patient denied), HTN (Patient denied), Chronic Kidney Disease, Seizures (Patient denied), Sexually Transmitted Disease (Patient denied) - Surgical History Surgical History: - Family History Family History: States: Hypertension - Immunization History Hx Tetanus Toxoid Vaccination: Yes Hx Influenza Vaccination: No Hx Pneumococcal Vaccination: No - Home Medications Home Medications: Ambulatory Orders Medication Instructions Recorded Olanzapine [Zyprexa] 7.5 mg PO DAILY 07/23/18 PARoxetine [Paxil] 10 mg PO DAILY 08/11/18 Ondansetron [Zofran Odt] 4 mg PO Q4H PRN #10 odt 08/23/18 - Allergies Allergies/Adverse Reactions: Allergies Allergy/AdvReac Type Severity Reaction Status Date / Time almond Allergy RASH Verified 08/23/18 13:00 nut - unspecified [nut] Allergy SWELLING Verified 08/23/18 13:00 peanut Allergy RASH Verified 08/23/18 13:00 Penicillins Allergy SWELLING Verified 08/23/18 13:00 shellfish derived Allergy RASH Verified 08/23/18 13:00 Review of Systems Constitutional: Negative for: Fever, Chills, Sweats, Weakness Eyes: Negative for: Vision Change Cardiovascular: Positive for: Palpitations. Negative for: Chest Pain Respiratory: Positive for: Shortness of Breath. Negative for: Cough, Hemoptysis, Pleuritic Pain, Wheezing Gastrointestinal: Negative for: Nausea, Vomiting, Abdominal Pain, Diarrhea Genitourinary Female: Negative for: Dysuria Musculoskeletal: Negative for: Neck Pain, Arm Pain Skin: Negative for: Rash Neurological: Negative for: Weakness, Numbness Physical Exam - Physical Exam Appears: Positive for: Well, Non-toxic, No Acute Distress. Negative for: Uncomfortable Head Exam: Positive for: ATRAUMATIC Skin: Positive for: Normal Color, Warm, Dry Eye Exam: Positive for: Normal appearance Neck: Positive for: Normal, Trachea Midline. Negative for: Pain On Movement Of Neck Cardiovascular/Chest: Positive for: Regular Rate, Rhythm, Chest Non Tender. Negative for: Edema, Gallop, Murmur, Bradycardia, Tachycardia Respiratory: Positive for: Normal Breath Sounds Pulses-Carotid (L): 2+ Pulses-Carotid (R): 2+ Pulses-Radial (L): 2+ Pulses-Radial (R): 2+ Back: Positive for: Normal Inspection Extremity: Positive for: Normal ROM Medical Decision Making Medical Decision Making: Self resolved anxiety/panic attack. Physical exam shows no abnormalities. EKG shows NSR. Vitals stable. Pt states she will resume taking her anxiety medications when she gets home and states she does not need a refill. Pt will follow up with primary medical doctor in one week. Return parameters discussed. Disposition - Clinical Impression Clinical Impression: Anxiety attack, Atypical chest pain - Disposition Disposition: Routine/Home Disposition Time: 13:01 Condition: IMPROVED
[2018-09-21 13:17] VITALS: BP 131/93; PULSE 90; RESP 16; TEMP 97.9; O2SAT 99
== END 2018-09-21 13:14 | disposition home or self-care (01) ==
LOC: H.ER 11:30
DX: R07.89 Other chest pain (principal); F41.0 Panic disorder [episodic paroxysmal anxiety]